=== PATIENT | male | born 1950 | race Caucasian/White ===

== ENCOUNTER 2017-02-09 05:52 | Day surgery (SDC) | payer MEDICARE, BC ==
[~2017-02-09 05:52] MED LIST: SYNTHROID137 MCG PO
[2017-02-09 09:17] VITALS: BMI 22.2
--- NOTE | 2017-02-09 18:25 | NUR ---
1745 IV DC WITH CATHER TIP INTACT
--- NOTE | 2017-02-14 10:17 | OP ---
PATIENT NAME: SHILOH ZAVALA MEDICAL RECORD: [id number] :54 LOCATION:D.OPS ADMISSION DATE: SURGEON: MONI HERNANDEZ MD DATE OF OPERATION: 02/09/2017 PREOPERATIVE DIAGNOSES: 1. Recurrent right inguinal hernia. 2. Symptomatic left inguinal hernia. POSTOPERATIVE DIAGNOSES: 1. Recurrent right indirect inguinal hernia. 2. Left indirect inguinal hernia, symptomatic. PROCEDURES: 1. Open repair of recurrent right indirect inguinal hernia with bilayer preperitoneal polypropylene mesh. 2. Open repair of left inguinal hernia with bilayer polypropylene mesh. SURGEON: Moni Hernandez MD SIGN CARPENTER: None. BLOOD LOSS: Minimal. ANESTHESIA: General. COMPLICATIONS: None. The risks, possible complications and alternatives to procedure were explained to the patient. He elects to proceed. The discussion included, but was not limited to, bleeding requiring an emergency reoperation, infection, intestinal injury as well as recurrence. OPERATIVE COURSE: The patient was conveyed to the operating room electively on 02/09/2017. General anesthesia was induced by the anesthesia staff. The abdomen and genitals were sterilely prepped and draped. A transverse incision was accomplished in the right groin. Sharp dissection was carried down through skin and subcutaneous tissue as well as Chris's fascia. The external oblique aponeurosis was then sharply cleaned of overlying connective tissue. The external oblique aponeurosis was then opened along the direction of its fibers. I bluntly dissected down through the internal oblique and transversus abdominis muscle layers. A preperitoneal pocket was fashioned bluntly. An indirect hernia was reduced in its entirety. I opened the hernia sac. There was no sliding component. I then closed the hernia sac with a running 3-0 Vicryl suture. I cut 2 ovals out of polypropylene mesh and sutured them one on top of the other with a running #1 Surgidac. I placed the mesh in the preperitoneal space. Once I was satisfied with placement of the mesh, I sutured the internal oblique and transversus abdominis muscle layers together incorporating a portion of the underlying mesh in a horizontal mattress fashion with 0 Surgidac. The external oblique aponeurosis was then closed with running #1 Vicryls. Chris's fascia was approximated with interrupted 3-0 Vicryls. The subdermis was approximated with interrupted 3-0 Vicryls. The skin was approximated with a running intracuticular 4-0 Vicryl. Benzoin and Steri-Strips were applied. OPERATIVE REPORT [id number] JONATHANZoeySHILOH WYNNEOX Attention was then turned around to the left side. A transverse incision was accomplished in the left groin. Sharp dissection was carried down through skin and subcutaneous tissues as well as Chris fascia. The external oblique aponeurosis was then sharply cleaned of overlying connective tissue. The external oblique aponeurosis was then opened along the direction of its fibers. I bluntly dissected down through the internal oblique and transverse abdominis muscle layers. I reduced an indirect hernia in its entirety. There was no direct component. No femoral component. I then cut 2 ovals out of the polypropylene mesh. I sutured the 2 ovals one on top of the other with a running #1 Surgidac. I placed the mesh in the preperitoneal space. Once I was satisfied with placement of the mesh in the preperitoneal space, I sutured the internal oblique and transversus abdominis muscles together in a horizontal mattress fashion, incorporating a portion of the mesh with interrupted 0 Surgidacs. The external oblique aponeurosis was closed with running #1 Vicryls. Chris fascia was approximated with interrupted 3-0 Vicryls. The subdermis was approximated with interrupted 3-0 Vicryls. The skin was approximated with a running intracuticular 4-0 Vicryl. Benzoin and Steri-Strips were applied. The patient was then extubated and conveyed to post-anesthesia care unit where he was in stable condition. He will be dismissed home on [address] as well as [place]. I will see him in the office in 2 to 3 weeks. TRANSINT:[id number] Voice Confirmation ID: [id number] DOCUMENT ID: [id number] MONI HERNANDEZ MD at 1017 CC: TOBI JAMES MD [id number] DICTATION DATE: 02/09/17 1611 [employer] ARCHITECT: 02/09/17 1833 [facility] 02/09/17 [facility] [address] [place] [address]
== END 2017-02-09 18:00 | disposition home or self-care (01) ==
LOC: D.OPS 05:52 → D.PAN 11:15 → D.OPS 12:00 → D.PAN 12:15 → D.OPS 14:15 → D.PAN 14:15 → D.OPS 15:15
DX: K40.20 Bilateral inguinal hernia, without obstruction or gangrene, not specified as recurrent (principal); E03.9 Hypothyroidism, unspecified; Z01.812 Encounter for preprocedural laboratory examination

== ENCOUNTER → 2018-03-08 08:40 | Outpatient (CLI) | payer MEDICARE, BC | END | disposition home or self-care (01) | LOC: D.MRI 08:40 | DX: M25.532 Pain in left wrist (principal) ==